=== PATIENT | female | born 1985 ===

== ENCOUNTER 2017-05-30 16:31 | Emergency (ER) | payer SELFPAY ==
[~2017-05-30] VITALS: Ht 157.5 cm; Wt 79.5 kg
[2017-05-30 16:48] VITALS: BP 104/56; PULSE 91; RESP 16; TEMP 98.9
[2017-05-30 19:44] LABS: AUTOMATED NEUTROPHIL # 3.3 TH/MM3 (1.8-7.7); BASOPHIL % 0.6 % (0.0-2.0); EOSINOPHIL % 0.7 % (0.0-4.0); HEMATOCRIT 37.7 % (35.0-46.0); HEMOGLOBIN 12.5 GM/DL (11.6-15.3); LYMPH % 34.9 % (9.0-44.0); MEAN CELL VOLUME 87.3 FL (80.0-100.0); MEAN CORPUSCULAR HGB CONC 33.2 % (32.0-36.0); MEAN PLATELET VOLUME 9.8 FL (7.0-11.0); MONO % 6.7 % (0.0-8.0); MONOCYTE # 0.4 TH/MM3 (0-0.9); NEUT % 57.1 % (16.0-70.0); PLATELET COUNT 287 TH/MM3 (150-450); RED BLOOD COUNT 4.32 MIL/MM3 (4.00-5.30); RED CELL DISTRIBUTION WIDTH 13.7 % (11.6-17.2); WHITE BLOOD COUNT 5.9 TH/MM3 (4.0-11.0)
[2017-05-30 20:09] LABS: BICARBONATE 25.5 MEQ/L (21.0-32.0); BLOOD UREA NITROGEN 7 MG/DL (7-18); CALCIUM 9.2 MG/DL (8.5-10.1); CHLORIDE 108 MEQ/L (98-107); CREATININE 0.81 MG/DL (0.50-1.00); GLOMERULAR FILTRATION RATE 83 ML/MIN (>89); GLUCOSE,RANDOM 74 MG/DL (74-106); SODIUM (NA) 142 MEQ/L (136-145)
[2017-05-30 20:14] LABS: TROPONIN I LESS THAN 0.02 NG/ML (0.02-0.05)
--- NOTE | 2017-05-31 18:23 | EKG ---
Date Performed: 05/30/2017 Time Performed: 17:41:20 PTAGE: 31 years EKG: Sinus rhythm EARLY TRANSITION NORMAL ECG NO PREVIOUS TRACING DOCTOR: Steve Galindo Interpretating Date/Time 05/31/2017 18:21:13
== END 2017-05-30 21:15 | disposition left against medical advice (07) ==
LOC: NETRI 16:31
DX: R09.89 Other specified symptoms and signs involving the circulatory and respiratory systems (principal)
CPT/HCPCS: 80048; 82550; 84484; 85025; 93005; 99281